=== PATIENT | female | born 1955 | race Caucasian/White ===

== ENCOUNTER 2025-10-11 15:21 | Emergency (ER) | payer MEDICARE, OTHER, SELFPAY ==
[2025-10-11 15:57] LABS: Hematocrit 39.3 % (37.0-47.0); Hemoglobin 12.9 g/dL (12.0-16.0); Mean Corp Hgb Conc. 32.8 g/dL (33.0-37.0); Mean Corpuscular Volume 93.6 fL (81.0-99.0); Nucleated Red Blood Cells % 0 %; Platelet Count 373 10^3/uL (130-400); Red Cell Dist. Width 15.0 % (11.5-14.5)
[2025-10-11 16:10] LABS: ALT (SGPT) 46 U/L (0-35); AST (SGOT) 42 U/L (14-36); Albumin 4.3 g/dl (3.5-5.0); Alkaline Phosphatase 56 U/L (38-126); Blood Urea Nitrogen 38 mg/dl (7-17); Calcium 9.7 mg/dl (8.4-10.2); Carbon Dioxide 30 mmol/L (22-30); Chloride 100 mmol/L (98-107); Glucose 86 mg/dl (70-99); Potassium 3.9 mmol/L (3.5-5.1); Sodium 136 mmol/L (135-145); Total Protein 7.3 g/dl (6.3-8.2); eGFR 43.69
[2025-10-11 19:17] VITALS: BP 149/122
--- NOTE | 2025-10-11 20:05 | ED.GENMED ---
History of Present Illness
General
Chief Complaint: Swelling
Source: patient
Time Seen by Provider: 10/11/25 16:41
History of Present Illness
History of Present Illness:
70-year-old female who presents with bilateral lower extremity edema left greater than right that has been ongoing for 3 months. 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
started swimming in an outdoor salt pool that seem to improve her neuropathy. She then states that at some point about 3 months ago she woke up with discomfort in her feet and noticed her feet were swollen she saw her primary care physician a few
times and had blood work and ultrasound performed that was reportedly negative. Patient missed she also had an exposure to bats in her house and received the rabies vaccine. She states she did read about side effects and was concerned because it
said that she had a history of cancer with lymph node dissection and that it could cause swelling. Of note the lymph node dissection was in the right axilla and she did not have the injections in her right upper extremity. Patient reports
discomfort and redness. Her doctor had recommended therapy which she has not received yet and has been waiting for her appointment. Patient states she is on amlodipine but states that is the only thing that has helped control her blood pressure.
Patient is on hydrochlorothiazide as well and states that in the past when she increased her dose of hydrochlorothiazide she gets lightheaded. She denies chest pain or shortness of breath. No fevers. Over the last few days she feels like the
swelling and discomfort has been worse. The patient admits that most of her care has been done but she decided to come here to get it checked out.
Past History
Past History
ED Past Medical History: CAD, Cancer (Breast) and HTN
Phy Exam
Physical Exam
Physical Exam:
CONSTITUTIONAL Patient alert and oriented to person, place and time. Well-appearing. Vital signs reviewed.
HEAD atraumatic, normocephalic.
EYES eyelids normal to inspection, Extraocular muscles intact, Conjunctiva normal, Sclera normal.
NECK normal range of motion, Trachea midline, no jugular venous distention.
RESPIRATORY CHEST No respiratory distress noted, Chest expansion equal, Bilateral breath sounds clear.
CARDIOVASCULAR regular rate and rhythm, Heart sounds normal.
ABDOMEN abdomen nontender, Bowel sounds normal. No distention.
BACK normal inspection, no obvious deformities
UPPER EXTREMITY range of motion normal, Motor strength normal, no cyanosis, no edema.
LOWER EXTREMITY range of motion normal, Motor strength normal, no cyanosis, normal bilateral posterior tibial pulses. Normal bilateral dorsalis pedis pulses. She has bilateral pedal edema with left greater than right lower extremity edema. No
palpable cords. Mild erythroderma noted to the feet bilaterally
NEURO Speech normal, No focal motor deficits, Olar coma scale 15, Memory normal, Cranial Nerves intact to screening exam.
SKIN skin warm, dry, and normal in color.
Scores
Heart Failure Risk
Heart Failure Risk Score: Not Applicable
Course
Orders/Labs/Results
Orders:
Orders
10/11/25 15:40
Complete Blood Count/With Diff Urgent
Comprehensive Metabolic Panel Urgent
10/11/25 17:05
Electrocardiogram (*1) Urgent
Reason for Study: Chest Pain
EKG- Treatment ONCE
10/11/25 19:56
Vital Signs- Treatment ONCE
Frequency: Once
US Periph Venous LOWER Ext Reji Urgent
Comment:
Reason For Exam: L>R edema
10/11/25 19:57
Electrocardiogram (*1) Urgent
Reason for Study: Other
Other Reason for Exam: LE edema
EKG- Treatment ONCE
Abnormal Lab Results
10/11/25
15:40
MCHC 32.8 L g/dL
(33.0-37.0)
RDW 15.0 H %
(11.5-14.5)
BUN 38 H mg/dl
(7-17)
Creatinine 1.3 H mg/dL
(0.6-1.0)
AST 42 H U/L
(14-36)
ALT 46 H U/L
(0-35)
10/11/25 15:40
10/11/25 15:40
Vital Signs
Initial and Last Documented VS:
Initial Vital Signs
Temp Pulse Resp Pulse Ox
98.0 F 86 16 97
10/11/25 15:26 10/11/25 15:26 10/11/25 15:26 10/11/25 15:26
Last Documented Vital Signs
Temp Pulse Resp BP Pulse Ox
98.0 F 81 16 165/89 99
10/11/25 15:26 10/11/25 19:17 10/11/25 15:26 10/11/25 20:25 10/11/25 20:09
MDM/Problems Addressed
Differential Diagnosis Includes:
Lymphedema, cellulitis, DVT, amlodipine side effect, electrolyte disturbance, uncontrolled hypertension
MDM/Problems Addressed:
Uncontrolled hypertension, bilateral edema, renal insufficiency
*Pulse Oximetry
SaO2: 99
Oxygen Mode of Delivery: Room air
Patient hypoxic: no
*Critical Care Note
Total Time (30-74mins, 75-104mins- exclusive of procedures): Not Applicable
Data Reviewed
Source: patient
Prescriptions/Medications Considered But Not Given:
Consider diuretics but symptoms have been somewhat chronic
Patient Management
Escalation/DeEscalation of care consider admission/obs:
Patient presents with several months of lower extremity edema. Question whether it is related to her amlodipine. Advised her to follow-up with her doctor regarding blood pressure management and weaning off amlodipine. Also recommended outpatient
echocardiogram symptoms persist. Okay for discharge. No evidence of failure
Update Note
Update Note:
2103 called to the room as the patient was yelling at staff. Making demands such as wanting food (despite having food at bedside). Patient was very verbose and her history took an extended period of time. However, patient claimed that no one
spent any time with her. Patient also states 'I know doctors'. Discussed with patient that there is no evidence of an emergency, however I would like to proceed with the ultrasound. She did state that she would like to wait for the ultrasound.
Nursing staff did call security
ED Attending Note
-
Portions of this chart may have been created with voice recognition software.� Occasional wrong word or��sound alike� substitutions may have occurred due to the inherent limitations of voice recognition software.
Discharge Plan
Departure
Patient Disposition: Home (Routine Discharge)
Date of Disposition: 10/11/25
Time of Disposition: 22:26
Patient with high blood pressure during this ER visit?: Yes
Discharge Problem:
Edema
Instructions: Dependent Edema (DC), BLOOD PRESSURE
Prescriptions:
No Action
amlodipine [Norvasc] 5 mg Tablet
5 mg PO DAILY
loteprednol etabonate 0.5 % Drops,Suspension
1 drp BOTH EYES BID
fluticasone propionate [Flonase] 50 mcg/actuation [place],Suspension
1 spray INTRANASAL BIDPRN PRN (Reason: allergies)
cyclosporine [Restasis] 0.05 % Dropperette
1 drp BOTH EYES Q12H
hydrochlorothiazide 12.5 mg Tablet
12.5 mg PO DAILY
Referrals:
Gamal Travis MD [Family Provider, Internal Medicine]
Activity Restrictions/Additional Instructions:
Please see your jigman for follow-up your family doctor to stop your amlodipine and adjust your other medications appropriately. It is possible that the amlodipine is causing lower extremity edema. Please also consider further workup with an
echocardiogram. Return immediately for chest pain, shortness of breath, weakness of any kind or any other concerns.
Interventions
Interventions:
*General Assessment Last Done: 10/11/25 15:26
*Neglect/Abuse Screening Last Done: 10/11/25 15:26
*ED COVID-19 Vaccine History Last Done: 10/11/25 15:26
*ED Influenza Vaccine History Last Done: 10/11/25 15:26
[facility] Risk Assessment Tool Last Done: 10/11/25 20:44
*Risk Screen - Suicide (C-SSRS) Last Done: 10/11/25 15:26
*Nursing Disposition Last Done: 10/11/25 22:48
ED- Cardiac Assessment Last Done: 10/11/25 20:42
ED- Pulmonary Assessment Last Done: 10/11/25 20:42
ED-Skin Assessment Last Done: 10/11/25 20:42
Discharge Date and Time
Discharge Date/Time: 10/11/25 22:49
Print Language: HUNGARIAN
[2025-10-11 20:25] VITALS: BP 165/89
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
--- NOTE | 2025-10-11 21:01 | EDRN ---
security present, Dr. Jacobs at bedside and pt begins to yell, waive hands wildly in staffs personal space and attempt to record with her cellphone threatening to this RN specifically 'don't make me do something I'll regret, don't make me hurt you'
== END 2025-10-11 22:49 | disposition home or self-care (01) ==
LOC: EMR 15:21
PROVIDERS: Emergency Medicine; EMERGENCY PHYSICIAN Emergency Medicine; FAMILY PHYSICIAN Internal Medicine
DX: R60.0 Localized edema (principal); I25.10 Atherosclerotic heart disease of native coronary artery without angina pectoris; I10 Essential (primary) hypertension; G62.9 Polyneuropathy, unspecified; Z85.3 Personal history of malignant neoplasm of breast
CPT/HCPCS: 99284; 80053; 85025; 93005; 93970